=== PATIENT | male | born 1940 | race Caucasian/White ===

== ENCOUNTER 2017-10-09 08:17 | Emergency (ER) | payer MEDICARE, OTHER ==
[2017-10-09] MEDS ORDERED: ONDANSETRON HCL/PF 4 MG/ 2ML VIAL IVP ONE (08:28)
--- NOTE | 2017-10-09 08:29 | ED Physician Documentation ---
General Adult - HISTORIAN Historian: patient - HPI Stated Complaint: nausea, weakness, dizziness Chief Complaint: Nausea,Vomiting,Diarrhea Onset: hours (2) Timing: still present Severity: mild Further Comments: yes (He states he was nauseated last night with resolution after OTC meds. He did wake this am with nasuea, dizziness, sweating and weakness. Denies a fever. He did not have weakness in one side vs another. He denies any chest pain.) Last known Well Code/Unknown Code: Unknown - ROS CONST: sweating, weakness. denies: fever, recent illness EYES/ENT: problems with vision (due to dizziness ) CVS/RESP: cough ("I always have wheezing and a cough" ). denies: shortness of breath GI/: nausea. denies: problems urinating, vomiting, diarrhea MS/SKIN/LYMPH: denies: calf pain, neck pain, joint pain, leg swelling, rash NEURO/PSYCH: dizziness, difficulty walking (due to weakness and dizzness ). denies: headache, fainting, numbness, difficulty with speech, anxiety - PAST HX Past History: other Surgeries/Procedures: other Immunizations: UTD Allergies/Adverse Reactions: Allergies Allergy/AdvReac Type Severity Reaction Status Date / Time No Known Drug Allergies Allergy Verified 10/09/17 08:32 Home Medications: Ambulatory Orders Medication Instructions Recorded Albuterol Sulfate [Proair Hfa] 2 inhalation IH Q 4-6 HRS PRN #1 07/03/14 each Aspirin 81 mg PO DAILY u2 07/03/14 Levothyroxine Sodium 150 mcg PO DAILY u2 07/03/14 Atorvastatin Calcium 10 mg PO HS 10/09/17 Hydrochlorothiazide 25 mg PO DAILY 10/09/17 Losartan Potassium [Cozaar] 50 mg PO DAILY 10/09/17 - SOCIAL HX Smoking History: non-smoker Alcohol Use: none Drug Use: none - FAMILY HX Family History: No - REVIEWED ASSESSMENTS Nursing Assessment Reviewed: Yes Vitals Reviewed: Yes Progress - Progress Progress: 0914: States nausea is improved DG 0941: Feeling better. He is sitting up in bed. States dizziness is improved. No further nausea. Denies any other complaints. Discussed findings with spouse, daughter and pt. DG 1015: Daughter is stating they want to be transferred to [place] due to continued dizziness. DG 1020: [place] admission advisor Maulik notified of status and request for transfer DG 1044: [facility] admission advisor states pt does not meet their admission . DG 1050: Daughter states he didnt have nausea prior to dizziness and this was a mistake on communication. Contacted Maulik again about this symptom change and he stated this did not change the admission requirement. Family is wanting ambulance transfer to [facility] ER for re evaluation. Pt states he will not ride in ambulance will take private vehicle. He remains dizzy . No further nausea . DG ED Results Lab/Radiology - Radiology Radiology Impressions: Examination: CT head without contrast History: Cough weekness weezing chest tightness and dizzyness starting today (Hx ) Comparison exam: None available Technique: Noncontrast head CT protocol. Findings: Ventricles and sulci are consistent for patient age. Cerebrocerebellar parenchyma demonstrates periventricular low attenuation consistent with small vessel disease. No evidence for parenchymal hemorrhage. No evidence for mass or mass effect. No midline shift. No extra axial fluid collections. Partial visualization of the paranasal sinuses, mastoid air cells, orbits, skull and scalp without gross irregularity. Anterior falx calcifications. Impression: Age related changes. No acute parenchymal process. No hemorrhage. Electronically signed on Oct 09, 2017 9:34:24 AM CDT by: Eliseo Rodriguez Examination: Portable chest History: Evaluate lungs, cough weekness weezing chest tightness and dizzyness starting today (Hx) Comparison exam: None provided. Findings: Single view of the chest demonstrates a normal cardiac and mediastinal silhouette. Sternotomy wires. Lung goldman without focal infiltrate. No blunting of the costophrenic margins. Articular degenerative changes. Impression: No acute pulmonary process. Electronically signed on Oct 09, 2017 9:35:34 AM CDT by: Eliseo Rodriguez - Orders Orders: ED Orders Category Date Time Status BNP [NT-proBNP] Stat Lab 10/09/17 08:25 Received CBC/PLATELET/DIFF Routine Lab 10/09/17 08:25 Received CMP Routine Lab 10/09/17 08:25 Received CREATINE KINASE Routine Lab 10/09/17 08:25 Received PT-INR Routine Lab 10/09/17 08:25 Received PTT Routine Lab 10/09/17 08:25 Received TROPONIN I (cTnI) Stat Lab 10/09/17 08:25 Received Ondansetron HCl/Pf [Zofran 4 mg/2 ml] Med 10/09/17 08:28 Once 4 mg IVP NOW ONE EKG WITH COMPARISON Stat Ther 10/09/17 Ordered General Adult Physical Exam - PHYSICAL EXAM GENERAL APPEARANCE: mild distress (he is alert although he is anxious something is wrong. He is keeping his eyes shut during exam due to dizzness) EENT: eye inspection normal, ENT inspection normal, JIHAN NECK: normal inspection RESPIRATORY: no resp distress, chest non-tender, wheezes CVS: reg rate & rhythm, heart sounds normal, no murmur ABDOMEN: soft, normal bowel sounds BACK: normal inspection SKIN: warm/dry EXTREMITIES: non-tender, normal range of motion, no evidence of injury, no edema NEURO: oriented X3, CN's nml as tested, motor nml, sensation nml, mood/affect nml, cognition normal Discharge Clincal Impression: Dizziness Referrals: Stephy Rowe PRN [Primary Care Provider] - 2 Days Additional Instructions: 1. Rest 2. Offer meds for dizziness 3. They would like to be discharged and will go to ER at [place]. 4. Return to ER for any concerns Condition: Stable Disposition: 01 HOME, SELF-CARE Decision to Admit: NO Date of Decison to Admit: 10/09/17 Decision Time: 10:48
[2017-10-09 08:32] LABS: BASOPHILS % 0.3 (0.0-1.5); MEAN CORPUSCULAR HEMOGLOBIN 31.7 pg (28.0-34.0); MEAN CORPUSCULAR VOLUME 93.5 fl (80.0-100.0); MONOCYTES % 5.9 % (0.0-11.0); NEUTROPHILS # 3.6 # k/uL (1.4-7.7)
[2017-10-09 08:50] LABS: eGFR (Non-African) > 60
[2017-10-09] MEDS ORDERED: 0.9 % SODIUM CHLORIDE 1,000 ML IV ONE (09:14)
[2017-10-09] MEDS ORDERED: ALBUTEROL SULFATE 2.5 MG/3 ML AMPUL.NEB NEB ONE (09:26)
--- NOTE | 2017-10-09 09:52 | Diagnostic Imaging Report ---
YEN ARCOS [facility] [address] [facility] [address] [place], [place]. [address] Report Submission Date: Oct 09, 2017 9:34:24 AM CDT Patient Study Name: DARNELL MORALES Date: Oct 09, 2017 8:55:30 AM CDT Modality Type: CT\SR Gender: M Description: CT BRAIN W/O CONTRAST : 36 Institution: [facility] Physician: YEN ARCOS Examination: CT head without contrast History: Cough weekness weezing chest tightness and dizzyness starting today ( Hx) Comparison exam: None available Technique: Noncontrast head CT protocol. Findings: Ventricles and sulci are consistent for patient age. Cerebrocerebellar parenchyma demonstrates periventricular low attenuation consistent with small vessel disease. No evidence for parenchymal hemorrhage. No evidence for mass or mass effect. No midline shift. No extra axial fluid collections. Partial visualization of the paranasal sinuses, mastoid air cells, orbits, skull and scalp without gross irregularity. Anterior falx calcifications. Impression: Age related changes. No acute parenchymal process. No hemorrhage. Electronically signed on Oct 09, 2017 9:34:24 AM CDT by: Eliseo LONGORIA
--- NOTE | 2017-10-09 09:53 | Diagnostic Imaging Report ---
YEN ARCOS [facility] [address] [facility] [address] [place], [place]. [address] Report Submission Date: Oct 09, 2017 9:35:34 AM CDT Patient Study Name: DARNELL MORALES Date: Oct 09, 2017 8:59:57 AM CDT Modality Type: DX Gender: M Description: CHEST : 36 Institution: [facility] Physician: YEN ARCOS Examination: Portable chest History: Evaluate lungs, cough weekness weezing chest tightness and dizzyness starting today (Hx) Comparison exam: None provided. Findings: Single view of the chest demonstrates a normal cardiac and mediastinal silhouette. Sternotomy wires. Lung goldman without focal infiltrate. No blunting of the costophrenic margins. Articular degenerative changes. Impression: No acute pulmonary process. Electronically signed on Oct 09, 2017 9:35:34 AM CDT by: Eliseo LONGORIA
[2017-10-09 10:04] LABS: APPEARANCE,URINE Clear (CLEAR); COLOR,URINE Yellow (YELLOW); OCCULT BLOOD,URINE Negative (NEGATIVE); UROBILINOGEN URINE 0.2 Eu (0.2-1.0)
[2017-10-09 13:17] VITALS: BP 155/64
== END 2017-10-09 11:27 | disposition home or self-care (01) ==
LOC: ED 08:17
DX: R42 Dizziness and giddiness (principal); R53.1 Weakness; R11.0 Nausea
CPT/HCPCS: 70450; 71045; 80053; 81002; 82550; 83880; 84484; 85025; 85379; 85610; 85730; 93005; 94640; 94760; J2405; J7030; 96365; 96375; 99283; S1016